=== PATIENT | female | born 1950 | race Caucasian/White ===

== ENCOUNTER 2023-12-15 08:58 | Emergency (ER) | payer MEDICARE ==
[~2023-12-15] VITALS: Ht 162.6 cm; Wt 92.4 kg
[2023-12-15 09:05] VITALS: TEMP 98
[2023-12-15] MEDS ORDERED: tetanus & diphtheria toxoid (Td) vaccine 0.5ml IMVAC ONE (09:15)
[2023-12-15] MEDS: LIDOcaine 1% 30ml preserv. free vial IJ STA (09:50)
[2023-12-15] MEDS: ondansetron 4mg rapidly disintigrating tab PO ONE (10:42)
[2023-12-15] MEDS: HYDROcodone/acetaminophen 10/325mg tab PO ONE (10:43)
[2023-12-15] MEDS: TETanus/Pertussis (Acell)/Diphther VAC/PF (Tdap-Adult) 0.5ml syringe IMVAC ONE (10:46)
[2023-12-15] MEDS: morphine 10mg/ml inj. IM ONE ×2 (11:59→13:00)
[2023-12-15] MEDS ORDERED: HYDR-3965 PO (12:34)
[2023-12-15] MEDS: ketorolac trometh. 30mg/ml inj. IM ONE (12:46)
[2023-12-15] MEDS: ketorolac tromethamine 15mg/ml inj. IM ONE (12:57)
[2023-12-15 14:34] VITALS: BP 154/79; PULSE 59; RESP 16; O2SAT 95
== END 2023-12-15 15:34 | disposition home or self-care (01) ==
LOC: ER 08:58
DX: S01.81XA Laceration without foreign body of other part of head, initial encounter (principal); S52.501A Unspecified fracture of the lower end of right radius, initial encounter for closed fracture; Z79.899 Other long term (current) drug therapy; W19.XXXA Unspecified fall, initial encounter; Y93.89 Activity, other specified; Y92.89 Other specified places as the place of occurrence of the external cause; Y99.8 Other external cause status
CPT/HCPCS: 12011; 25605; 73100; 73110; 90471; 90715; 96372; 99284; J1885; J2274; A4565; A6446; A6449; J7030